=== PATIENT | female | born 1990 | race Caucasian/White ===

== ENCOUNTER 2021-04-30 01:07 | Inpatient (IN) | payer BC ==
[2021-04-30 03:01] LABS: Bacteria,Urine 2+ /HPF (Negative); Bilirubin,Urine NEG (Negative); Blood,Urine LG (Negative); Color,Urine Yellow (Yellow); Mucus,Urine FEW /HPF; Protein,Urine <15 mg/dL mg/dL (Negative); Urobilinogen,Urine < 2.0 mg/dL (<2.0)
[2021-04-30] MEDS ORDERED: ePHEDrine SULFATE 50 MG/1 ML INJ IV PRN (03:37)
[2021-04-30] MEDS ORDERED: LOPERAMIDE 2 MG CAP PO PRN (03:37)
[2021-04-30] MEDS ORDERED: ACETAMINOPHEN 325 MG TAB PO PRN ×2 (03:37→17:00)
[2021-04-30] MEDS ORDERED: LIDOCAINE (2%) 20 MG/1 ML VIAL 20 ML MDV INFILTRATI ONE (03:37)
[2021-04-30] MEDS ORDERED: OXYTOCIN 10 UNIT/1 ML INJ IM PRN (03:37)
[2021-04-30] MEDS ORDERED: ONDANSETRON 4 MG/2 ML INJ IV PRN ×2 (03:37→17:00)
[2021-04-30] MEDS ORDERED: miSOPROStol 200 MCG TAB PR PRN (03:37)
[2021-04-30] MEDS ORDERED: NALOXONE 0.4 MG/1 ML INJ IV PRN (03:37)
[2021-04-30] MEDS ORDERED: NalbUPHINE 10 MG/1 ML INJ IV PRN (03:37)
[2021-04-30] MEDS ORDERED: CARBOPROST TROMETHAMINE 250 MCG/1 ML INJ IM PRN (03:37)
[2021-04-30] MEDS ORDERED: TERBUTALINE 1 MG/1 ML INJ SUB-Q PRN (03:37)
[2021-04-30] MEDS ORDERED: MINERAL OIL 30 ML ORAL LIQD PO PRN (03:37)
[2021-04-30] MEDS ORDERED: BUTORPHANOL 2 MG/1 ML INJ IV PRN (03:37)
[2021-04-30] MEDS ORDERED: METHYLERGONOVINE MALEATE 0.2 MG/ML VIAL IM PRN (03:37)
[2021-04-30] MEDS ORDERED: DEXTROSE 50% IN WATER (25GM) 50 ML SYRINGE IV PRN (03:42)
--- NOTE | 2021-04-30 03:45 | History and Physical Report ---
History of Present Illness Date of examination: 04/30/21 Date of admission: 04/30/21 Chief complaint: contractions less than 5 mins apart since 11pm History of present illness: EDC Confirmation: 05/05/2021 Past History : 2 Term Births: 0 Premature Births: 0 Living Children: 0 Para: 0 Mult. Births: 0 Prev : 0 Prev. attempt? 0 Aborta: 1 Elect. Ab: 0 Spont. 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 of genital herpes: no Partner hx. of genital herpes: no Rash, Viral, or Febrile illness since last LMP? no Varicella/Chicken Pox Status: Unknown Genetic History Congenital Heart Defect: Mom: no Dad: no Wisam Disease: Mom: no Dad: no Thalassemia Mom: no Dad: no Neural Tube Defect Mom: no Dad: no Down's Syndrome Mom: no Dad: no Ja-Sachs Mom: no Dad: no Sickle Cell Disease/Trait Mom: no Dad: no Hemophilia Mom: no Dad: no Muscular Dystrophy Mom: no Dad: no Cystic Fibrosis Mom: no Dad: no Maggi Chorea Mom: no Dad: no Mental Retardation Mom: no Dad: no Fragile X Mom: no Dad: no Other Genetic/Chromosomal Disorder Mom: no Dad: no Child w/other defect Mom: no Dad: no Enviromental Exposures Xray Exposure: no Medication, drug, or alcohol use since LMP: no Chemical/Other Exposure: no Exposure to Cat Liter: no Hx of Parvovirus (Fifth Disease): no Occupational Exposure to Children: none Current Allergies: No known allergies Past History Past Medical History: other (anemia, see HPI) Past Surgical History: no surgical history, other (see HPI) RESIDENT CARE AID History: other (see HPI) Family/Genetic History: other (see HPI) Social history: other (see HPI) - Obstetrical History Expected Date of Delivery: 05/05/21 Actual Gestation: 39 Week(s) 2 Day(s) : 2 Para: 0 Hx # Term Pregnancies: 0 Number of Pregnancies: 0 Spontaneous Abortions: 1 Induced : 0 Number of Living Children: 0 Medications and Allergies Allergies Allergy/AdvReac Type Severity Reaction Status Date / Time No Known Allergies Allergy Verified 04/30/21 01:49 Active Meds: Active Medications Acetaminophen (Acetaminophen 325 Mg Tab) 650 mg PO Q4H PRN PRN Reason: Pain, Mild (1-3) Butorphanol Tartrate (Butorphanol 2 Mg/1 Ml Inj) 2 mg IV Q2H PRN PRN Reason: Pain , Severe (7-10) Carboprost Tromethamine (Carboprost Tromethamine 250 Mcg/1 Ml Inj) 250 mcg IM ONCE PRN PRN Reason: Uterine Bleeding Ephedrine Sulfate (Ephedrine Sulfate 50 Mg/1 Ml Inj) 10 mg IV Q2M PRN PRN Reason: Hypotension Lactated Ringer's (Lactated Ringers) 1,000 mls @ 125 mls/hr IV DIRECT DON Oxytocin/Sodium Chloride (Pitocin/Ns 30 Unit/500ml) 30 units in 500 mls @ 40 mls/hr IV TITR DON; Protocol Lidocaine (Lidocaine (2%) 20 Mg/1 Ml Vial 20 Ml Mdv) 20 ml INFILTRATI ONCE ONE Stop: 04/30/21 03:38 Loperamide HCl (Loperamide 2 Mg Cap) 2 mg PO ONCE PRN PRN Reason: give with Hemabate Methylergonovine Maleate (Methylergonovine Maleate 0.2 Mg/Ml Vial) 0.2 mg IM ONCE PRN PRN Reason: Uterine Bleeding Mineral Oil (Mineral Oil 30 Ml Oral Liqd) 30 ml PO QHS PRN PRN Reason: Constipation Misoprostol (Misoprostol 200 Mcg Tab) 800 mcg HI ONCE PRN PRN Reason: Uterine Bleeding Nalbuphine HCl (Nalbuphine 10 Mg/1 Ml Inj) 10 mg IV Q2H PRN PRN Reason: Pain, Moderate (4-6) Naloxone HCl (Naloxone 0.4 Mg/1 Ml Inj) 0.1 mg IV Q2MIN PRN PRN Reason: Res Rate </= 8 or 02 SAT < 92% Ondansetron HCl (Ondansetron 4 Mg/2 Ml Inj) 4 mg IV Q8H PRN PRN Reason: Nausea And Vomiting Oxytocin (Oxytocin 10 Unit/1 Ml Inj) 10 unit IM ONCE PRN PRN Reason: Uterine Bleeding Terbutaline Sulfate (Terbutaline 1 Mg/1 Ml Inj) 0.25 mg SUB-Q ONCE PRN PRN Reason: Hyperstimulation/Hypertonicity Review of Systems All systems: negative Genitourinary: contractions, no leakage of fluid, no genital sores - Physical Exam Breasts: Positive: deferred Cardiovascular: Regular rate Lungs: Positive: Normal air movement Abdomen: Positive: normal appearance, soft Genitourinary (Female): Positive: normal external genitalia, normal perenium Vulva: both: normal Vagina: Positive: normal moisture Uterus: Positive: normal size, normal contour, other (gravid at term) Anus/Rectum: Positive: normal perianal skin Extremities: Positive: normal - Obstetrical FHR: category 1 Uterine Contraction Monitor Mode: External Cervical Dilatation: 5 Cervical Effacement Percentage: 90 station: -2 Uterine Contraction Frequency (min): 2-3 Uterine Contraction Pattern: Regular Uterine Tone Measurement Phase: Resting Results Abnormal lab results 04/30/21 Range/Units Unknown Urine WBC (Auto) 7.0 H (0.0-6.0) /HPF All other labs normal. Tests: (1) Ct, Ng, Trich vag by SHAINA ([id number]) Order Note: Clinical Information: SRC:VR SRC:UR Chlamydia by SHANIA Negative Negative *1 Gonococcus by SHANIA Negative Negative *2 Trich vag by SHANIA Negative Negative *3 Tests: (2) Strep Gp B SHANIA ([id number]) ! Strep Gp B SHANIA Negative Negative *4 Tests: (1) Profile I ([id number]) Order Note: Clinical Information: SRC:UR HBsAg Screen Negative Negative *1 RPR Non Reactive Non Reactive *2 Rubella Antibodies, IgG 14.60 index Immune >0.99 *3 Non-immune <0.90 Equivocal 0.90 - 0.99 Immune >0.99 ABO Grouping O *4 Rh Factor Positive *5 Please note: Prior records for this patient's ABO / Rh type are not available for additional verification. Antibody Screen Negative Negative *6 WBC 8.9 x10E3/uL 3.4-10.8 *7 RBC 4.11 x10E6/uL 3.77-5.28 *8 Hemoglobin 12.1 g/dL 11.1-15.9 *9 Hematocrit 36.9 % 34.0-46.6 *10 MCV 90 fL 79-97 *11 MCH 29.4 pg 26.6-33.0 *12 MCHC 32.8 g/dL 31.5-35.7 *13 RDW 12.6 % 11.7-15.4 *14 Platelets 251 x10E3/uL 150-450 *15 Neutrophils 81 % Not Estab. *16 Lymphs 13 % Not Estab. *17 Monocytes 5 % Not Estab. *18 Eos 1 % Not Estab. *19 Basos 0 % Not Estab. *20 ! Immature Cells <No Reported Value> *21 Neutrophils (Absolute) [H] 7.1 x10E3/uL 1.4-7.0 *22 Lymphs (Absolute) 1.2 x10E3/uL 0.7-3.1 *23 Monocytes(Absolute) 0.5 x10E3/uL 0.1-0.9 *24 Eos (Absolute) 0.1 x10E3/uL 0.0-0.4 *25 Baso (Absolute) 0.0 x10E3/uL 0.0-0.2 *26 ! Immature Granulocytes 0 % Not Estab. *27 ! Immature Grans (Abs) 0.0 x10E3/uL 0.0-0.1 *28 ! NRBC <No Reported Value> *29 Hematology Comments: <No Reported Value> *30 Tests: (2) HB Solu + Rflx Fra ([id number]) Hemoglobin (Hgb) Solubility Negative Negative *31 Tests: (3) HIV Ag/Ab with Reflex ([id number]) HIV Screen 4th Generation wRfx Non Reactive Non Reactive *32 Tests: (4) HCV Antibody reflex to SHANIA ([id number]) ! HCV Ab <0.1 s/co ratio 0.0-0.9 *33 Tests: (5) Interpretation: ([id number]) ! Interpretation: SPRCS *34 Negative Not infected with HCV, unless recent infection is suspected or other evidence exists to indicate HCV infection. Tests: (6) Urine Culture, Routine ([id number]) Urine Culture, Routine Final report *35 Tests: (7) Result ([id number]) ! Result 1 No growth *36 Assessment and Plan Pt with c/o painful contractions less than 5mins apart since 2300. Pt requests epidural. SVE with change. Admission orders placed. Dr. Medina made aware. - Patient Problems (1) Gestational diabetes mellitus in , controlled by oral hypoglycemic drugs Current Visit: Yes Status: Acute Plan to address problem: accuchecks q4h with sliding scale insulin per protocol hypoglycemic orders PRN (2) 39 weeks gestation of Current Visit: Yes Status: Acute Plan to address problem: continuous monitoring admit to labor start IV and draw admission labs anticipate
[2021-04-30] MEDS ORDERED: INSULIN REGULAR, HUMAN 100 UNITS/1 ML SUB-Q SCH (04:00)
[2021-04-30] MEDS ORDERED: OXYTOCIN DRIP 30 UNITS/500 ML BAG IV SCH ×2 (04:00→12:30)
[2021-04-30 04:37] LABS: Hematocrit 31.3 % (30.3-42.9); Hemoglobin 10.1 gm/dl (10.1-14.3); Mean Corpuscular HGB Conc 32 % (30-34); Mean Corpuscular Volume 86 fl (79-97); Platelet Count 244 K/mm3 (140-440); Red Blood Count 3.66 M/mm3 (3.65-5.03); Red Cell Distribution Width 15.4 % (13.2-15.2)
[2021-04-30] MEDS ORDERED: NALOXONE 2 MG/2 ML INJ IV PRN (05:02)
--- NOTE | 2021-04-30 05:54 | Anesthesia Consultation ---
Anesthesia Consult and Med Hx Date of service: 04/30/21 - Airway Anesthetic Teeth Evaluation: Poor ROM Head & Neck: Adequate Mental/Hyoid Distance: Adequate Mallampati Class: Class II Intubation Access Assessment: Good - Pulmonary Exam CTA: Yes - Cardiac Exam Cardiac Exam: RRR - Pre-Operative Health Status ASA Pre-Surgery Classification: ASA2 Proposed Anesthetic Plan: Epidural - Pulmonary Hx Smoking: No Hx Asthma: No Hx Respiratory Symptoms: No SOB: No COPD: No Home Oxygen Therapy: No Hx Pneumonia: No Hx Sleep Apnea: No - Cardiovascular System Hx Hypertension: No Hx Coronary Artery Disease: No Hx Heart Attack/AMI: No Hx Angina: No Hx Percutaneous Transluminal Coronary Angioplasty (PTCA): No Hx Cardia Arrhythmia: No Hx Pacemaker: No Hx Internal Defibrillator: No Hx Valvular Heart Disease: No Hx Heart Murmur: No Hx Peripheral Vascular Disease: No - Central Nervous System Hx Neuromuscular Disorder: No Hx Seizures: No CVA: No Hx Back Pain: No Hx Psychiatric Problems: No - Gastrointestinal Hx Ulcer: No Hx Gastroesophageal Reflux Disease: Yes - Endocrine Hx Renal Disease: No Hx End Stage Renal Disease: No Hx Cirrhosis: No Hx Liver Disease: No Hx Insulin Dependent Diabetes: No Hx Non-Insulin Dependent Diabetes: Yes (GDM) Hx Thyroid Disease: No Hx Hypothyroidism: No Hx Hyperthyroidism: No - Hematic Hx Anemia: Yes Hx Sickle Cell Disease: No - Other Systems Hx Alcohol Use: No Hx Substance Use: No Hx Cancer: No Hx Obesity: No
--- NOTE | 2021-04-30 05:55 | Progress Note ---
Labor Epidural - Labor Epidural Start Time: 05:15 Stop Time: 05:32 Performed by:: GERRY AWAD Procedure: Patient is requesting epidural for labor pain. H&P and labs reviewed. Procedure explained, questions answered, consent obtained. Patient placed in sitting position with monitors applied. Timeout performed immediately before start of procedure. Prep/drape in usual sterile fashion. Skin localized 3 mL 1% lidocaine at L[3]-L[4] interspace. 17-gauge Touhy epidural needle advanced to MANUELITO with saline at [6] cm. No blood/CSF noted via epidural needle. Epidural catheter advanced to [10] cm. Negative aspiration for blood and CSF via catheter, negative response to test dose 3 ml 1.5% lidocaine w/ Epi. Sterile dressing applied followed by tape reinforcement. Patient tolerated procedure well. No immediate complications noted.
[2021-04-30] MEDS ORDERED: fentaNYL-BUPIV 2 MCG/ML-0.125% 200 MCG/100 ML BAG EPIDURAL SCH (06:00)
[2021-04-30] MEDS: LACTATED RINGERS 1,000 ML IV SCH ×2 (06:10→08:40)
[2021-04-30] MEDS: ePHEDrine SULFATE 50 MG/1 ML INJ IV PRN ×2 (06:16→07:43)
--- NOTE | 2021-04-30 14:44 | Procedure Note ---
OB Delivery Note - Delivery Date of Delivery: 04/30/21 Appeals Referee: REESE MAZARIEGOS Estimated blood loss: 100cc - Vaginal Delivery presentation: vertex Delivery position: OA Intrapartum events: prolonged 2nd stage>2.5hr Delivery induction: none Delivery augmentation: rupture of membranes, pitocin Delivery monitor: external FHT, external uterine Route of delivery: Delivery placenta: spontaneous Delivery cord: 3 umbilical vessels Episiotomy: none Delivery laceration: 2nd degree Delivery repair: vicryl Anesthesia: epidural - A at 1 minute: 8 at 5 minutes: 9 Gender: Male (8lbs 3oz)
[2021-04-30] MEDS ORDERED: LANOLIN/ZINC/DIMETHICONE (LANSINOH) 7 GM TP PRN (17:00)
[2021-04-30] MEDS ORDERED: HYDROCORTISONE 25 MG RECTAL SUPP PR PRN (17:00)
[2021-04-30] MEDS ORDERED: diphenhydrAMINE 25 MG CAP PO PRN (17:00)
[2021-04-30] MEDS ORDERED: PROMETHAZINE 25 MG TAB PO PRN (17:00)
[2021-04-30] MEDS ORDERED: PROMETHAZINE 25 MG RECT SUPP PR PRN (17:00)
[2021-04-30] MEDS ORDERED: oxyCODONE /ACETAMINOPHEN 5-325MG TAB PO PRN (17:00)
[2021-04-30] MEDS ORDERED: MAGNESIUM HYDROXIDE (MOM) ORAL LIQD UDC PO PRN (17:00)
[2021-04-30] MEDS ORDERED: WITCH HAZEL/ GLYCERIN PAD TP PRN (17:00)
[2021-04-30] MEDS ORDERED: BENZOCAINE/MENTHOL 20/0.5% TOP SPRAY 56 GM TP PRN (17:00)
[2021-04-30] MEDS: SENNOSIDES/DOCUSATE SODIUM 8.6/50 MG TAB PO SCH (18:06)
[2021-04-30] MEDS: IBUPROFEN 600 MG TAB PO SCH (18:06)
[2021-04-30] MEDS: FERROUS SULFATE 325 MG TAB PO SCH (21:22)
[2021-04-30] MEDS ORDERED: DOCUSATE SODIUM 100 MG CAP PO SCH (22:00)
[2021-05-01] MEDS: IBUPROFEN 600 MG TAB PO SCH ×2 (01:10→08:36)
[2021-05-01 06:45] LABS: Hematocrit 25.5 % (30.3-42.9); Hemoglobin 8.1 gm/dl (10.1-14.3)
[2021-05-01] MEDS: SENNOSIDES/DOCUSATE SODIUM 8.6/50 MG TAB PO SCH ×2 (07:59→08:36)
--- NOTE | 2021-05-01 08:25 | Discharge Summary ---
Providers - Providers Date of Admission: 04/30/21 03:37 Date of discharge: 05/01/21 Attending physician: FRANCINE SAUER MD 04/30/21 16:10 Consult to Senior Revenue Accountant [CONS] Routine Reason For Exam: assistance with , SNS Primary care physician: FRANCINE SAUER MD Hospitalization Reason for admission: active labor Delivery: Episiotomy: none Laceration: 2nd degree Other procedures: none complications: none Discharge diagnosis: IUP at term delivered [place] baby: male Pertinent studies: Pt diagnosed with COVID during this admission. Currently asymptomatic. Hospital course: S: Pt doing well. Ambulating, voiding, and passing flatus okay. BC: Undecided. O: VSS. Adequate I&O's. Fundus firm, minimal bleeding noted. Some swelling to the perineum noted, ice pack applied. H/H 8.1/25.5, asymptomatic anemia of delivery. A: 31 y.o. s/p . In good condition . P: Discharge home with instructions. Pt to schedule visit in the office in 4-6 wks. To schedule son's circumcision in the office in 1 wk. Condition at discharge: Good Disposition: 01 HOME / SELF CARE / HOMELESS Plan - Discharge Medications Prescriptions: Docusate Sodium [Colace] 100 mg PO BID PRN #60 capsule PRN Reason: Constipation Lidocain2.5%/Prilocai2.5% [Emla] 1 applic TP ONCE #1 tube Ferrous Sulfate [Feosol 325 MG tab] 325 mg PO QDAY #30 tablet - Provider Discharge Summary Activity: routine, no sex for 6 weeks, no heavy lifting 4 weeks, no strenuous exercise Diet: routine Instructions: routine Additional instructions: [] Smoking cessation referral if applicable(refer to patient education folder for contact #) [] Refer to [facility] Booklet Call your doctor immediately for: * Fever > 100.5 * Heavy vaginal bleeding ( >1 pad per hour) * Severe persistent headache * Shortness of breath * Reddened, hot, painful area to leg or breast * Drainage or odor from incision. * Keep incision clean and dry at all times and follow doctor's instructions regarding bathing/showering Congratulations on the of your baby boy! Thank you for allowing us to take care of you. Please take all medications as directed by your provider. Please schedule your son's circumcision appointment in the office in 1 week. You have been prescribed EMLA cream for your son's circumcision. Please not use this cream at home but bring it with you to your son's circumcision appointment. Please schedule your visit in the office in 4-6 weeks. Should you have any questions or concerns after discharge, please do not hesitate to call the office at [phone]. - Follow up plan Follow up: FRANCINE SAUER MD [Primary Care Provider] - 7 Days
[2021-05-01] MEDS: FERROUS SULFATE 325 MG TAB PO SCH (08:37)
[2021-05-01] MEDS ORDERED: PRENATAL VIT27-FE FUMARATE-FOLIC ACID VIT TAB PO SCH (10:00)
--- NOTE | 2021-05-01 15:33 | Post Anesthesia Evaluation ---
- Post Anesthesia Evaluation Patient Participated: Yes Airway Patent: Yes Stable Respiratory Function: Yes Nausea/Vomiting: No Temp > 96.8F: Yes Pain Manageable: Yes Adequeate Hydration: Yes Anesthesia Complications: No Block Receding Appropriately: Yes Patient on Ventilator: No
[2021-05-01 16:41] VITALS: BP 110/62
[2021-05-01] MEDS ORDERED: TETANUS,DIPH,PERTUSS(ACELL) VACCINE 0.5 ML SYRINGE IM ONE (17:00)
== END 2021-05-01 17:30 | disposition home or self-care (01) | DRG 805 ==
LOC: TRG 01:07 → APU 01:10 → TRG 03:37 → LD 03:37 → OB 15:45
PROVIDERS: ADMIT Student in an Organized Health Care Education/Training Program; ATTEND Student in an Organized Health Care Education/Training Program
PROC: 10E0XZZ Delivery of Products of Conception, External Approach (ICD-10-PCS; principal; 2021-04-30)
PROC: 0KQM0ZZ Repair Perineum Muscle, Open Approach (ICD-10-PCS; 2021-04-30)
PROC: 3E0R3BZ Introduction of Anesthetic Agent into Spinal Canal, Percutaneous Approach (ICD-10-PCS; 2021-04-30)
PROC: 00HU33Z Insertion of Infusion Device into Spinal Canal, Percutaneous Approach (ICD-10-PCS; 2021-04-30)
PROC: 3E0234Z Introduction of Serum, Toxoid and Vaccine into Muscle, Percutaneous Approach (ICD-10-PCS; 2021-05-01)
DX: O98.52 Other viral diseases complicating childbirth (principal); U07.1 COVID-19; Z37.0 Single live birth; Z3A.39 39 weeks gestation of pregnancy; Z23 Encounter for immunization; O24.425 Gestational diabetes mellitus in childbirth, controlled by oral hypoglycemic drugs; O99.62 Diseases of the digestive system complicating childbirth; K21.9 Gastro-esophageal reflux disease without esophagitis; O63.1 Prolonged second stage (of labor); O70.1 Second degree perineal laceration during delivery
CPT/HCPCS: 36415; 81001; 82962; 85014; 85018; 85027; 86592; 86850; 86900; 86901; 96360; G0378; J3490; J2590; J7120; U0003